=== PATIENT | male | born 1950 | race Caucasian/White ===

== ENCOUNTER → 2018-07-09 15:08 | Outpatient (CLI) | payer MEDICARE ==
[2012-01-24 08:27] VITALS: BMI 34.5
== END | disposition home or self-care (01) ==
LOC: D.RAD 15:08
DX: R06.02 Shortness of breath (principal)

== ENCOUNTER → 2020-11-19 18:16 | Outpatient (CLI) | payer MEDICARE ==
[2012-01-24 08:27] VITALS: BMI 34.5
[2020-11-19 20:01] LABS: BASOPHILS 0.4 % (0-2); EOSINOPHILS 1.5 % (0-7); HEMATOCRIT 40.9 % (42.0-54.0); HEMOGLOBIN 13.7 g/dL (13.5-17.5); IMMATURE GRANULOCYTES 0.2 % (0-5); LYMPHOCYTE ABS# 0.84 10x3/uL (1.32-3.57); LYMPHOCYTES 16.2 % (15-50); MCH 29.3 pg (26.0-34.0); MCHC 33.5 g/dL (31.0-37.0); MCV 87.6 fL (80.0-100.0); MEAN PLATELET VOLUME 9.7 fL (7.4-10.4); MONOCYTES 11.5 % (2-11); NEUTROPHIL ABS# 3.65 10x3/uL (1.78-5.38); NEUTROPHILS 70.2 % (40-80); RBC 4.67 10x6/uL (4.20-6.10); RDW 13.9 % (11.5-14.5); WBC 5.2 10x3/uL (4.8-10.8)
[2020-11-19 20:03] LABS: BILIRUBIN NEGATIVE (NEGATIVE); KETONE NEGATIVE (NEGATIVE); NITRITE NEGATIVE (NEGATIVE); PLATELET COUNT 136 10x3/uL (130-400); UROBILINOGEN NORMAL mg/dL (< 2)
[2020-11-19 20:27] LABS: ANION GAP 12.5 mmol/L (8-16); CALCIUM 8.6 mg/dL (8.5-10.1); CREATININE - SERUM 1.1 mg/dL (0.6-1.3); POTASSIUM - SERUM 3.5 mmol/L (3.5-5.1)
== END | disposition home or self-care (01) ==
LOC: D.LABREF 18:16
PROVIDERS: ATTEND Internal Medicine
DX: N39.0 Urinary tract infection, site not specified (principal); Z79.02 Long term (current) use of antithrombotics/antiplatelets

== ENCOUNTER → 2020-12-15 18:10 | Outpatient (CLI) | payer MEDICARE ==
[2012-01-24 08:27] VITALS: BMI 34.5
== END | disposition home or self-care (01) ==
LOC: D.LABREF 18:10
PROVIDERS: ATTEND Internal Medicine
DX: R41.0 Disorientation, unspecified (principal)